=== PATIENT | female | born 1985 | race Two or more races ===

== ENCOUNTER → 2016-08-10 | Emergency (ER) | payer SELFPAY ==
[~2016-08-10] VITALS: Ht 167.6 cm; Wt 108.9 kg
[~2016-08-10] MED LIST: CEPHALEXIN500 MG ORAL; CLINDAMYCIN HC300 MG ORAL; IBUPROFEN600 MG ORAL; KEFLEX500 MG ORAL; NKM
[2016-08-10 14:58] VITALS: BP 138/85
--- NOTE | 2016-08-10 15:43 | Emergency Room Report ---
History of Present Illness General Chief Complaint: Skin Rash/Abscess Source: Patient Present Illness HPI Patient has a boil in left thigh one week. States that 5 days ago it became large and started having drainage. Patient states that she's been pushing on it and getting all the pustular drainage evacuated and is using warm compresses with some improvement of symptoms. Patient states that is not going away and is requesting antibiotics. Denies any red streaks, fever, numbness, tingling, pressure, paralysis, cyanosis, bruising, loss of sensation, or loss of range of motion. Allergies: Coded Allergies: NO KNOWN ALLERGIES (Unverified Allergy, Unknown, 04/29/15) Patient History Past Medical History: see triage record Pertinent Family History: none Last Menstrual Period: Current Now: No Immunizations: UTD Reviewed Nursing Documentation: PMH: Agreed, PSxH: Agreed Nursing Documentation-PMH Past Medical History: No Stated History Review of Systems All Other Systems: negative except mentioned in HPI Physical Exam Vital Signs Date Time Temp Pulse Resp B/P Pulse Ox O2 Delivery O2 Flow Rate FiO2 08/10/16 14:58 97.9 86 16 138/85 99 Room Air Sp02 EP Interpretation: reviewed, normal General Appearance: no apparent distress, alert, GCS 15, non-toxic Head: normocephalic, atraumatic ENT: hearing grossly normal, normal pharynx, no angioedema, normal voice Neck: normal inspection Respiratory: chest non-tender, lungs clear, normal breath sounds, speaking full sentences Cardiovascular #1: regular rate, rhythm, no edema Musculoskeletal: back normal, gait/station normal, normal range of motion, non- tender, calf tenderness Neurologic: alert, oriented x3, responsive, motor strength/tone normal, sensory intact, speech normal Skin: normal color, warm/dry, well hydrated, other - 3cm Draining abscess left inner thigh with local erythema and tenderness to palpation w/o any streaking Lymphatic: no adenopathy Medical Decision Making PA Attestation Dr. Russ is my supervising physician with whom patient management has been discussed with. Diagnostic Impression: Primary Impression: Abscess ER Course Pt. presents to the ED c/o possible abscess Ddx considered but are not limited to non-specific skin eruption, cellulitis, insect bite, abscess, lymphangitis Vital signs: are WNL, pt. is afebrile H&PE are most consistent with abscess ORDERS: none required at this time, the diagnosis is clinical ED INTERVENTIONS: none required at this time. DISCHARGE: At this time pt. is stable for d/c to home. Will provide printed patient care instructions, and any necessary prescriptions. Care plan and follow up instructions have been discussed with the patient prior to discharge. Last Vital Signs Date Time Temp Pulse Resp B/P Pulse Ox O2 Delivery O2 Flow Rate FiO2 08/10/16 14:58 97.9 86 16 138/85 99 Room Air Disposition: HOME, SELF-CARE Condition: Stable Scripts Cephalexin* (KEFLEX*) 500 Mg Capsule 500 MG ORAL EVERY 12 HOURS, #20 CAP 0 Refills Prov: BASIM HERNANDEZ.Ángela 08/10/16 Clindamycin Hcl (CLINDAMYCIN HCL) 300 Mg Capsule 300 MG ORAL TID, #30 CAP Prov: BASIM HERNANDEZ.Ángela 08/10/16 Patient Instructions: Abscess Additional Instructions: Take medication as directed. Patient instructed to take ibuprofen and tylenol as needed for pain. Patient to return for wound check in 2-3 days either here, urgent care or with PCP. Advised patient to keep site of infection elevated above the level of their heart 3 or 4 times a day, for 30 minutes each time to help reduce swelling. Patient is to keep the infected area clean and dry. They can take a shower or bath, but be sure to pat the area dry with a towel afterward. Patient instructed to not put any antibiotic ointments or creams on the area. Patient should come back sooner if their symptoms do not get better within 3 days of starting treatment or if the red area gets bigger, more swollen , or more painful. BASIM HERNANDEZ Aug 10, 2016 15:43
== END | disposition home or self-care (01) ==
LOC: EMR 15:38
DX: L02.416 Cutaneous abscess of left lower limb (principal)
CPT/HCPCS: 99284

== ENCOUNTER 2019-06-26 15:07 | Emergency (ER) | payer SELFPAY ==
[~2019-06-26] VITALS: Ht 167.6 cm; Wt 104.3 kg
--- NOTE | 2019-06-26 15:40 | NUR ---
ED Nurse Note: Pt ambulated to ED d/t cough, nasal congestion, flu-like symptoms x 2 days. Pt is AOx4, VSS, afebrile on triage, on RA. Placed on bed.
[2019-06-26 15:41] VITALS: BP 152/96
--- NOTE | 2019-06-26 16:15 | Emergency Room Report ---
History of Present Illness General Chief Complaint: Flu Like Symptoms Source: Patient, Medical Record Present Illness HPI 34-year-old female with no significant past medical history here appears to be status post smoking x7 years here complaining of 2 weeks of cough and congestion and 1 day of back pain posttussive. Denies shortness of breath, wheezing, headache and dizziness. Complains of sinus congestion. Reports that symptoms started with fever and chills and sore throat. Denies abdominal pain, nausea vomiting. Denies vaping, marijuana use, other associated symptoms. Has not traveled recently. Appears to be stable with stable vital signs. Denies at this time Allergies: Coded Allergies: NO KNOWN ALLERGIES (Unverified Allergy, Unknown, 04/29/15) Patient History Past Medical History: see triage record Past Surgical History: unable to obtain Pertinent Family History: none Last Menstrual Period: 06/26/2019 Now: No : 1 Para: 1 Immunizations: UTD Reviewed Nursing Documentation: PMH: Agreed; PSxH: Agreed Review of Systems All Other Systems: negative except mentioned in HPI Physical Exam Vital Signs Date Time Temp Pulse Resp B/P (MAP) Pulse Ox O2 Delivery O2 Flow Rate FiO2 06/26/19 15:38 98.4 98 18 152/96 (114) 98 Room Air Sp02 EP Interpretation: reviewed, normal General Appearance: no apparent distress, alert, GCS 15, non-toxic Head: normocephalic, atraumatic Eyes: bilateral eye normal inspection, bilateral eye PERRL ENT: hearing grossly normal, normal pharynx, no angioedema, normal voice Neck: full range of motion, supple, thyroid normal, no meningismus, no bony tend, supple/symm/no masses Respiratory: chest non-tender, lungs clear, normal breath sounds, no rhonchi, no respiratory distress, no retraction, no wheezing Cardiovascular #1: regular rate, rhythm, no edema, no murmur Gastrointestinal: normal bowel sounds, non tender, soft, non-distended, no guarding, no rebound Rectal: deferred Genitourinary: no CVA tenderness Musculoskeletal: back normal, no calf tenderness Neurologic: alert, motor strength/tone normal, oriented x3, sensory intact, responsive, speech normal Psychiatric: judgement/insight normal, memory normal, mood/affect normal, no suicidal/homicidal ideation Skin: no rash Lymphatic: no adenopathy Medical Decision Making PA Attestation All my diagnosis and treatment plans were reviewed ad discussed with my supervising physician Dr. Calderon Diagnostic Impression: Primary Impression: Pneumonitis ER Course 34-year-old female with no significant past medical history here appears to be status post smoking x7 years here complaining of 2 weeks of cough and congestion and 1 day of back pain posttussive. Denies shortness of breath, wheezing, headache and dizziness. Complains of sinus congestion. Reports that symptoms started with fever and chills and sore throat. Denies abdominal pain, nausea vomiting. Denies vaping, marijuana use, other associated symptoms. Has not traveled recently. Appears to be stable with stable vital signs. Denies at this time Ddx considered but are not limited to: bronchitis, PNA, URI viral, bacterial bronchitis, pneumonitis Vital signs: are WNL, pt. is afebrile H&PE are most consistent with: Pneumonitis ORDERS: Chest x-ray, Augmentin, Flonase, guaifenesin, albuterol ED INTERVENTIONS: None required at this time. DISCHARGE: At this time pt. is stable for d/c to home. Will provide printed patient care instructions, and any necessary prescriptions. Care plan and follow up instructions have been discussed with the patient prior to discharge. Patient is taking occasional as directed, follow with primary care provider, increase oral hydration, if worsening symptoms return to emergency room Chest X-Ray Diagnostic Results Chest X-Ray Diagnostic Results : Chest X-Ray Ordered: Yes # of Views/Limited/Complete: 1 View Indication: Other - cough EP Interpretation: Yes ABRAHAM Xray: Interpretation reviewed, by supervising MD, and agrees with findings. Interpretation: no consolidation, no effusion, no pneumothorax Impression: No acute disease Electronically Signed by: David Alvarez PA-C Last Vital Signs Date Time Temp Pulse Resp B/P (MAP) Pulse Ox O2 Delivery O2 Flow Rate FiO2 06/26/19 15:41 98.4 66 18 152/96 98 Room Air Disposition: HOME, SELF-CARE Condition: Stable Referrals: NOT CHOSEN IPA/MD,REFERRING (PCP) Patient Instructions: Pneumonitis Additional Instructions: Take medication as directed, follow-up with your primary care provider, increase oral hydration, if worsening symptoms return to the emergency room Davdi Pastor Jun 26, 2019 16:14
[2019-06-26] MEDS ORDERED: AUGMENTIN 875-1 EAC1 ORAL (16:16)
[2019-06-26] MEDS ORDERED: VENTOLIN HFA18 GM INH (16:16)
[2019-06-26] MEDS ORDERED: GUAIFENESI100 MG/5 M ORAL (16:16)
[2019-06-26] MEDS ORDERED: FLONASE ALLERG9.9 ML NS (16:16)
--- NOTE | 2019-06-26 16:16 | NUR ---
ED Nurse Note: X-ray on bedside.
[2019-06-26 16:24] VITALS: BP 152/96
--- NOTE | 2019-06-26 16:24 | NUR ---
ER DISCHARGE NOTE: Pt is cleared to be discharged per ERMD, pt is AOx4, VSS, on RA. pt was given dc and prescription instructions, pt was able to verbalize understanding, pt id band removed. pt is able to ambulate with steady gait. pt took all belongings.
--- NOTE | 2019-06-27 14:24 | Diagnostic Imaging Report ---
Indication: Dyspnea Comparison: None A single view chest radiograph was obtained. Findings: Cardiomediastinal appearance is within normal limits for age. The lungs are clear. Pulmonary vascularity is appropriate. The diaphragmatic contour is smooth and costophrenic angles are sharp. No pleural effusions are identified. The bones are unremarkable. Impression: No acute findings
== END 2019-06-26 16:24 | disposition home or self-care (01) ==
LOC: EMR 15:30
DX: J18.9 Pneumonia, unspecified organism (principal); Z87.891 Personal history of nicotine dependence
CPT/HCPCS: 71045; 99283